=== PATIENT | female | born 1955 | race Caucasian/White ===

== ENCOUNTER 2018-07-26 02:17 | Emergency (ER) | payer MEDICAID ==
[2018-07-26 02:18] VITALS: BMI 29.5
[2018-07-26 02:21] VITALS: RESP 18; TEMP 98; O2SAT 98
--- NOTE | 2018-07-26 03:49 | C.PDOC ---
History Of Present Illness 62 year old female with PMHx of anxiety presents to the ED for evaluation. Patient reports that approximately a week ago she ran out of her Xanax. Patient now feeling nervous withy dry mouth. Patient is requesting medications. Patient denies SI/HI, hallucinations, CP, SOB, dizziness, headache, weakness, numbness. Time Seen by Provider: 07/26/18 02:35 Chief Complaint (Nursing): ENT Problem History Per: Patient History/Exam Limitations: no limitations Onset/Duration Of Symptoms: Days Recent travel outside of the [place]: No Additional History Per: Patient Past Medical History Reviewed: Historical Data, Nursing Documentation, Vital Signs Vital Signs: Last Vital Signs Temp 98.0 F 07/26/18 02:20 Pulse 86 07/26/18 02:20 Resp 18 07/26/18 02:20 BP 173/68 H 07/26/18 02:20 Pulse Ox 98 07/26/18 02:20 Primary Care Provider: Jose Juan Taveras - Medical History PMH: Anxiety, HTN Surgical History: No Surg Hx Family History: States: Unknown Family Hx - Social History Hx Alcohol Use: No Hx Substance Use: No - Immunization History Hx Tetanus Toxoid Vaccination: No Hx Influenza Vaccination: No Hx Pneumococcal Vaccination: No Review Of Systems Constitutional: Negative for: Fever, Chills Cardiovascular: Negative for: Chest Pain, Palpitations Respiratory: Negative for: Shortness of Breath Skin: Negative for: Rash Neurological: Negative for: Weakness, Numbness Psych: Positive for: Anxiety Physical Exam - Physical Exam Appears: Non-toxic, No Acute Distress Skin: Normal Color, Warm, Dry Head: Atraumatic, Normacephalic Eye(s): bilateral: Normal Inspection, PERRL, EOMI Ear(s): Bilateral: Normal Throat: Normal, No Erythema Neck: Normal ROM, Supple Lymphatic: Deferred Chest: Symmetrical Cardiovascular: Rhythm Regular Respiratory: Normal Breath Sounds, No Rales, No Rhonchi, No Wheezing Gastrointestinal/Abdominal: Normal Exam, Soft Extremity: Normal ROM, No Tenderness, No Swelling Neurological/Psych: Oriented x3, Normal Speech, Normal Cognition Gait: Steady ED Course And Treatment O2 Sat by Pulse Oximetry: 98 (ON RA) Pulse Ox Interpretation: Normal Progress Note: Plan: - Xanax 0.5 mg PO. Patient reports feeling better after medication was given. Patient reports she has an appointment with Dr. Taveras on 07/31 which patient is going to keep and follow up then. Disposition Counseled Patient/Family Regarding: Diagnosis, Need For Followup, Rx Given - Disposition Referrals: Jose uJan Taveras MD [Primary Care Provider] - Disposition: HOME/ ROUTINE Disposition Time: 03:46 Condition: CRITICAL Additional Instructions: Please call dr taveras office for appointment this week - or keep scheduled appointment Return to ER if worse Prescriptions: Alprazolam [Xanax] 0.5 mg PO HS #7 tab Instructions: Anxiety, Adult (DC) Print Language: [place]ER - Clinical Impression Clinical Impression: Medication refill, Anxiety - PA / [employer] / Resident Statement MD/DO has reviewed & agrees with the documentation as recorded. - Scribe Statement The provider has reviewed the documentation as recorded by the Scribe Teofilo Rudd All medical record entries made by the Scribe were at my direction and personally dictated by me. I have reviewed the chart and agree that the record accurately reflects my personal performance of the history, physical exam, medical decision making, and the department course for this patient. I have also personally directed, reviewed, and agree with the discharge instructions and disposition.
[2018-07-26 03:57] VITALS: BP 124/71; PULSE 75
== END 2018-07-26 03:58 | disposition home or self-care (01) ==
LOC: C.ER 02:17 → SUPCPDRO 02:17 → C.ER 03:58
DX: Z76.0 Encounter for issue of repeat prescription (principal); F41.9 Anxiety disorder, unspecified; I10 Essential (primary) hypertension